=== PATIENT | male | born 1930 | race Caucasian/White ===

== ENCOUNTER → 2016-08-27 | Outpatient (CLI) | payer MEDICARE, MEDICAID ==
[~2016-08-27] MED LIST: ACTOS15 MG PO; AGGRENOX1 CAP PO; AMARYL1 MG PO; CRESTOR10 M1 PO; DIOVAN HCT 1601 EACH PO; FLOMAX0.4 MG PO; JANUVIA50 MG PO; NEXIUM40 MG PO; PRED; PREDNISONE10 MG ORAL; PREDNISONE20 MG ORAL; SINGULAIR10 MG PO; TEKTURNA300 MG PO; ZYLOPRIM100 MG PO
--- NOTE | 2016-08-27 15:29 | Diagnostic Imaging Report ---
Indication: COUGH Technique: Two views of the chest Comparison: 03/22/2015 Findings: Lungs and pleural spaces are clear. There are degenerative changes of the thoracic spine. 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 Heart is enlarged. No significant change except the previously demonstrated left basilar atelectasis is no longer evident. Impression: No acute process Cardiomegaly
== END | disposition home or self-care (01) ==
LOC: RAD 12:42
DX: R05 Cough (principal); R06.02 Shortness of breath; I51.7 Cardiomegaly; Z95.0 Presence of cardiac pacemaker
CPT/HCPCS: 71020